=== PATIENT | male | born 1960 | race Caucasian/White ===

== ENCOUNTER 2016-05-29 16:21 | Emergency (ER) | payer OTHER ==
[~2016-05-29] VITALS: Ht 162.6 cm; Wt 58.4 kg
[2016-05-29 16:27] VITALS: TEMP 36.5; Ht 162.6 cm; Wt 58.4 kg
[2016-05-29] MEDS ORDERED: MoRPHine SULFATE 4 MG/ML 1 ML CARP\\VIAL IV STA (16:41)
[2016-05-29] MEDS ORDERED: SODIUM CHLORIDE 0.9% 1000ML 1,000 ML IV STA (16:41)
[2016-05-29 16:54] LABS: URINE APPEARANCE CLEAR (CLEAR); URINE COLOR DK YELLOW; URINE EPITHELIAL CELL AUTO 0-5 /lpf (0-5); URINE NITRITE POS (NEG); URINE PH 6.5 (4.5-7.5); URINE SPECIFIC GRAVITY 1.015 (1.000-1.030); UROBILINOGEN POS (NEG); ZZUR CULT IF INDIC CLEAN CATCH NO
[2016-05-29 16:58] LABS: MANUAL MICROSCOPIC REQUIRED? NO; REVIEW REQ? NO
[2016-05-29 16:59] LABS: URINE BILIRUBIN NEG (NEG)
[2016-05-29 17:09] LABS: BASO % 0.6 %; BASO ABS # 0.05 K/uL (0-0.2); COMPLETE YES; EOS % 1.8 %; HEMATOCRIT 41.5 % (42-52); IG% 0.3 %; LYMPH % 27.3 %; LYMPH ABS # 2.48 K/uL (1.2-3.4); MEAN CORPUSCULAR HEMOGLOBIN 33.6 pg (25-34); MEAN CORPUSCULAR HGB CONC 36.9 g/dl (32-36); MEAN PLATELET VOLUME 9.8 fL (7.4-10.4); MONO % 11.3 %; NEUT % 58.7 %; PLATELET COUNT 231 K/uL (130-400); RED BLOOD COUNT 4.56 M/uL (4.7-6.1); WHITE BLOOD COUNT 9.09 K/uL (4.8-10.8)
[2016-05-29 17:26] LABS: BUN/CREATININE RATIO 11.2 (10-20); CALCIUM 8.7 mg/dl (8.5-10.1); CREATININE 1.2 mg/dl (0.60-1.40); POTASSIUM 3.9 mmol/L (3.5-5.1)
[2016-05-29] MEDS ORDERED: ANTICRE6 PO (17:59)
[2016-05-29] MEDS ORDERED: PERCOCET PO (18:00)
[2016-05-29] MEDS ORDERED: INHALER INH (18:01)
[2016-05-29] MEDS ORDERED: CEPH500C PO (19:28)
[2016-05-29] MEDS ORDERED: CEPHALEXIN MONOHYDRATE 250 MG CAP PO ONE (19:30)
[2016-05-29 19:36] VITALS: BP 106/65; PULSE 74; O2SAT 96
--- NOTE | 2016-05-29 21:50 | EMERGENCY ROOM VISIT NOTE ---
History Report prepared by Elena: Christel Arriaza Under the Supervision of: Dr. Oleg Katz D.O. First contact with patient: 16:32 Chief Complaint: PAIN (GENERALIZED) Stated Complaint: HANDS/KNEES/ANKLE PAIN History of Present Illness The patient is a 55 year old male who presents to the Emergency Room with complaints of constant generalized pain for the past 3 days. He has a personal history of rheumatoid arthritis since 1993. He follows-up with his PCP for his RA and states that he does not take any medications at home for his RA. The patient states that for the past 3 days he has been having increased pain in his joints secondary to his RA. He describes his pain as achy and rates it as a 10/10 in severity. The patient has an appointment with his PCP next week but states that he has been told in the past to go to the ER with worsening pain. He decided to come to the ED today because he is also experiencing pain in his left jaw. He denies any trouble eating, drinking, or swallowing. He does not have pain in his teeth. He states, "I think I have an abscess." The patient obtained antibiotics from a friend 2 days ago and states that his jaw pain was improving. The patient denies fevers, cough, rhinorrhea, sore throat, shortness of breath, chest pain, and abdominal pain. He also denies any red or swollen joints and any recent tick bites. The patient reports some dysuria for the past 2 days. He has been advised by his PCP to follow-up at a pain clinic for his RA but states that he has not yet followed-up. Source of History: patient Onset: 3 days ago Position: other (global) Symptom Intensity: 10/10 Quality: ache Timing: constant Modifying Factors (Worsening): other (Hx of RA) Modifying Factors (Relieving): other (antibiotics) Associated Symptoms: + urinary symptoms, No SOB, No abdominal pain, No chest pain, No cough, No fevers, No sorethroat Note: Pt notes left jaw pain. Pt denies trouble eating, drinking, or swallowing. Pt denies dental pain. He also denies any red or swollen joints and any recent tick bites. Review of Systems See HPI for pertinent positives & negatives. A total of 10 systems reviewed and were otherwise negative. Past Medical & Surgical Medical Problems: (1) Hepatitis C (2) Shingles Family History No pertinent history stated. Social History Smoking Status: Current Every Day Smoker Current/Historical Medications Scheduled Cephalexin Monohydrate (Keflex), 500 MG PO QID [Antibiotic], 1 TAB PO TODAY [Inhaler], 2 PUFF INH BID [Percocet], 1 TAB PO UD Allergies Coded Allergies: No Known Allergies (Unverified , 01/20/14) Physical Exam Vital Signs Date Time Temp Pulse Resp B/P Pulse Ox O2 Delivery O2 Flow Rate FiO2 05/29/16 19:36 74 16 106/65 96 05/29/16 19:03 65 16 109/68 96 Room Air 05/29/16 17:06 71 16 106/76 96 Room Air 05/29/16 16:27 36.5 90 18 122/84 94 Room Air Physical Exam GENERAL: alert, sitting up in bed, cachectic, disheveled, well nourished, no distress, non-toxic EYE EXAM: normal conjunctiva. OROPHARYNX: no exudate, no erythema, lips, buccal mucosa, and tongue normal and mucous membranes are moist NECK: supple, no nuchal rigidity, no adenopathy, non-tender LUNGS: Clear to auscultation. Normal chest wall mechanics HEART: no murmurs, S1 normal and S2 normal ABDOMEN: abdomen soft, non-tender, normo-active bowel sounds, no masses, no rebound or guarding. RECTAL: Heme negative. BACK: Back is symmetrical on inspection and there is no deformity, no midline tenderness, no CVA tenderness. SKIN: no rashes and no bruising UPPER EXTREMITIES: Full active and passive ROM of all joints with minimal tenderness, no swelling or erythema. LOWER EXTREMITIES: No pitting edema. Full active and passive ROM of all joints with minimal tenderness, no swelling or erythema. NEURO EXAM: Normal sensorium, cranial nerves II-XII grossly intact, normal speech, no gross weakness of arms, no gross weakness of legs. Medical Decision & Procedures Laboratory Results 05/29/16 16:55 Red Blood Count 4.56, Mean Corpuscular Volume 91.0, Mean Corpuscular Hemoglobin 33.6, Mean Corpuscular Hemoglobin Concent 36.9, Mean Platelet Volume 9.8, Neutrophils (%) (Auto) 58.7, Lymphocytes (%) (Auto) 27.3, Monocytes (%) (Auto) 11.3, Eosinophils (%) (Auto) 1.8, Basophils (%) (Auto) 0.6, Neutrophils # (Auto ) 5.34, Lymphocytes # (Auto) 2.48, Monocytes # (Auto) 1.03, Eosinophils # (Auto ) 0.16, Basophils # (Auto) 0.05 05/29/16 16:55 Test 05/29/16 16:36 05/29/16 16:55 Urine Color DK YELLOW Urine Appearance CLEAR (CLEAR) Urine pH 6.5 (4.5-7.5) Urine Specific [place] 1.015 (1.000-1.030) Urine Protein NEG (NEG) Urine Glucose (UA) NEG (NEG) Urine Ketones TRACE (NEG) Urine Occult Blood NEG (NEG) Urine Nitrite POS (NEG) Urine Bilirubin NEG (NEG) Urine Urobilinogen POS (NEG) Urine Leukocyte Esterase TRACE (NEG) Urine WBC (Auto) 0 /hpf (0-5) Urine RBC (Auto) 0-4 /hpf (0-4) Urine Hyaline Casts (Auto) 0 /lpf (0-5) Urine Epithelial Cells (Auto) 0-5 /lpf (0-5) Urine Bacteria (Auto) NEG (NEG) White Blood Count 9.09 K/uL (4.8-10.8) Red Blood Count 4.56 M/uL (4.7-6.1) Hemoglobin 15.3 g/dL (14.0-18.0) Hematocrit 41.5 % (42-52) Mean Corpuscular Volume 91.0 fL (80-100) Mean Corpuscular Hemoglobin 33.6 pg (25-34) Mean Corpuscular Hemoglobin Concent 36.9 g/dl (32-36) Platelet Count 231 K/uL (130-400) Mean Platelet Volume 9.8 fL (7.4-10.4) Neutrophils (%) (Auto) 58.7 % Lymphocytes (%) (Auto) 27.3 % Monocytes (%) (Auto) 11.3 % Eosinophils (%) (Auto) 1.8 % Basophils (%) (Auto) 0.6 % Neutrophils # (Auto) 5.34 K/uL (1.4-6.5) Lymphocytes # (Auto) 2.48 K/uL (1.2-3.4) Monocytes # (Auto) 1.03 K/uL (0.11-0.59) Eosinophils # (Auto) 0.16 K/uL (0-0.5) Basophils # (Auto) 0.05 K/uL (0-0.2) RDW Standard Deviation 43.7 fL (36.4-46.3) RDW Coefficient of Variation 13.1 % (11.5-14.5) Immature Granulocyte % (Auto) 0.3 % Immature Granulocyte # (Auto) 0.03 K/uL (0.00-0.02) Anion Gap 8.0 mmol/L (3-11) Est Creatinine Clear Calc Drug Dose 56.8 ml/min Estimated GFR () 77.9 Estimated GFR (Non- 67.2 BUN/Creatinine Ratio 11.2 (10-20) Calcium Level 8.7 mg/dl (8.5-10.1) Total Bilirubin 0.6 mg/dl (0.2-1) Direct Bilirubin 0.2 mg/dl (0-0.2) Aspartate Amino Transf (AST/SGOT) 25 U/L (15-37) Alanine Aminotransferase (ALT/SGPT) 34 U/L (12-78) Alkaline Phosphatase 90 U/L (45-117) Total Creatine Kinase 47 U/L (39-308) Total Protein 7.5 gm/dl (6.4-8.2) Albumin 3.3 gm/dl (3.4-5.0) Lipase 143 U/L (73-393) Lyme Disease IgM Antibody NEG (NEG) Laboratory results per my review. Medications Administered Medications (Trade) Dose Ordered Sig/Martinez Route Start Time Stop Time Status Last Admin Dose Admin Sodium Chloride (Nss 1000ml) 1,000 ml @ 999 mls/hr Q1H1M STAT IV 05/29/16 16:41 05/29/16 17:41 DC 05/29/16 17:04 999 MLS/HR Morphine Sulfate (MoRPHine SULFATE INJ) 4 mg NOW STAT IV 05/29/16 16:41 05/29/16 16:42 DC 05/29/16 17:04 4 MG ED Course ED COURSE: Vital signs were reviewed and showed normal vitals The patients medical record was reviewed The above diagnostic studies were performed and reviewed. ED treatments and interventions as stated above. 1634: The patient was evaluated in room A3. A complete history and physical examination was performed. 1641: Morphine sulfate 4 mg IV, NSS 1000 ml @ 999 mls/hr IV 1850: I reassessed the patient and updated him. I performed a rectal examination. Please see the physical examination for my findings. 1926: Upon reevaluation, the patient is feeling better. I discussed my findings with the patient and he understands and agrees with the treatment plan. Based on the patients age, coexisting illnesses, exam and lab findings the decision to treat as an outpatient was made. The patient remained stable while under my care. The patient appeared well at the time of discharge. 1930: Keflex 500 mg PO Medical Decision Differential Diagnosis includes but is not limited to dehydration, stroke, anemia, hypoglycemia, hyponatremia, hypernatremia, urinary tract infection, pneumonia, bronchitis, sepsis, gastroenteritis, additional abdominal pathology, metabolic abnormalities and infections. Patient is a 55-year-old male who presents the ER for diffuse arthralgias which has been present for the past 10 years but worsening recently. No infected joint on exam. Full active and passive range of motion of all extremities. Hands are suggestive of are with the deformities present. CBC along with BMP, LFTs, bilirubin and lipase was unremarkable. Lyme was negative. UA shows positive nitrates and esterase without white cells. He did describe pain with urination yesterday consequently he was put on Keflex given a small dose along the ER. He also complained of mild pain at the base of his left jaw no exam there is no obvious infection and I favor this likely secondary to lymph nodes. Patient was updated in regards this and was discharged follow-up with his primary care doctor. He is not given any narcotics upon discharge as he did admit to obtaining all of his medications from his friends including narcotics and I felt this gentleman was unreliable. Discussed with Pt concerning signs and symptoms to watch out for. Pt was instructed to follow up with their PCP and discussed with the patient their option to return to the ED at anytime for persistent or worsening symptoms. The appropriate anticipatory guidance and out- patient management, including indications for return to the emergency department , were explained at length to the patient and understood. Impression Primary Impression: Arthralgia Scribe Attestation The scribe's documentation has been prepared under my direction and personally reviewed by me in its entirety. I confirm that the note above accurately reflects all work, treatment, procedures, and medical decision making performed by me. Departure Information Dispostion Home / Self-Care Prescriptions Cephalexin Monohydrate (Keflex) 500 Mg Cap 500 MG PO QID, #28 CAP Prov: Oleg Katz, 05/29/16 Referrals No Doctor, Assigned (PCP) Noah Wheatley M.D. Forms HOME CARE DOCUMENTATION FORM, IMPORTANT VISIT INFORMATION, WORK / SCHOOL INSTRUCTIONS Patient Instructions ED Joint Pain, [facility] Additional Instructions Please follow up with your primary care doctor with in the next 24 hours. Any worsening of your symptoms, please return to the ED immediately. This includes fevers greater than 100.4, worsening pain, swelling of the joints, redness of your joints, or any other concerning signs or symptoms from your standpoint. Problem Qualifiers Primary Impression: Arthralgia Joint pain location: unspecified Qualified Codes: M25.50 - Pain in unspecified joint
--- NOTE | 2016-05-30 13:44 | Pharmacy Progress Note ---
ED Pharmacist Progress Note Date of Service: May 30, 2016. Patient called stating his Rx was not sent to the correct pharmacy. [facility] [place] [facility] of [facility]. I contacted the incorrect pharmacy and had the Rx cancelled by the pharmacist there. I then called the correct Rx for Keflex 500mg PO QID # 28caps, no refills, auth by Dr Katz to [facility] ([phone])
== END 2016-05-29 19:38 | disposition home or self-care (01) ==
LOC: C.EDB 16:22 → C.EDA 19:38
DX: M25.50 Pain in unspecified joint (principal); M06.9 Rheumatoid arthritis, unspecified; B19.20 Unspecified viral hepatitis C without hepatic coma; F17.200 Nicotine dependence, unspecified, uncomplicated; Z79.899 Other long term (current) drug therapy